=== PATIENT | male | born 1975 | race Caucasian/White ===

== ENCOUNTER 2020-01-04 21:13 | Emergency (ER) | payer SELFPAY ==
[~2020-01-04] VITALS: Ht 185.4 cm; Wt 90.9 kg
[2020-01-04] MEDS ORDERED: LIDOcaine 1% W/epiNEPHrine 1:200,000 10ml vial IJ ONE (21:30)
[2020-01-04] MEDS ORDERED: TETanus/Pertussis (Acell)/Diphther VAC/PF (Tdap-Adult) 0.5ml syringe IMVAC ONE (21:30)
[2020-01-04 22:13] VITALS: BP 118/72
== END 2020-01-04 22:16 | disposition home or self-care (01) ==
LOC: ER 21:14
DX: S71.112A Laceration without foreign body, left thigh, initial encounter (principal); W26.0XXA Contact with knife, initial encounter; Y93.89 Activity, other specified; Y92.89 Other specified places as the place of occurrence of the external cause; Y99.8 Other external cause status
CPT/HCPCS: 12001; 12041; 90471; 90715; 99152; 99283; 99285